=== PATIENT | female | born 1975 | race Caucasian/White ===

== ENCOUNTER 2017-02-25 06:45 | Inpatient (IN) | payer OTHER ==
[~2017-02-25] VITALS: Ht 170.2 cm; Wt 80.3 kg
--- NOTE | 2017-02-25 07:11 | NUR ---
DR. KINNEY AT BEDSIDE FOR MSE, PT BIB SIGNIFICANT OTHER FOR C/O LEFT SIDE CHEST PAIN THAT RADIATES TO LEFT ARM AND LEFT SIDE OF BACK, DENIES RECENT TRAUMA FALL OR INJURY, PT REPORTS PAIN STARTED APPROX 2300 LAST NIGHT AND HAS BEEN CONSTANT AND REPORTS COULDN'T SLEEP LAST NIGHT, REPORTS "SHARP, POKING" PAIN, REPORTS ALLERGIC TO ASA, PT LS CTA BILATERALLY, RESP EVEN AND UNLABORED, NO SOB NOTED, REPORTS PAIN INCREASED WHEN TAKING A DEEP BREATH, PT REPORTS HX OF HBP BUT DENIES TAKING HER MEDS DUE TO "MAKES ME REALLY SLEEPY" PT DENIES COUGH, REPORTS NAUSEA WITH NO EPISODES OF VOMITING, PT AAOX4, IN NO ACUTE DISTRESS, WILL CONTINUE TO MONITOR
[2017-02-25 07:38] LABS: microscopic required? NO
[2017-02-25 07:48] LABS: BASOPHIL % 0.5 % (0-2); PLATELET COUNT 210 x10^3mcL (130-400); RED CELL DISTRIBUTION WIDTH 12.9 % (11.5-14.5)
--- NOTE | 2017-02-25 07:51 | NUR ---
MEDICATIONS ADMINISTERED PER MD ORDER, PLEASE SEE EMAR, PT TOLERATED WELL, SIGNFICANT OTHER AT BEDSIDE, PT IN NO ACUTE DISTRESS, WILL CONTINUE TO MONITOR
[2017-02-25 07:52] LABS: UA SPECIFIC GRAVITY >=1.030 (1.005-1.035); urine erythrocyte NEGATIVE (NEGATIVE)
[2017-02-25 08:01] LABS: AMPHETAMINE QUAL UR NONE DETECTED (NEG <=1000)
[2017-02-25 08:02] LABS: CALCIUM 8.3 mg/dL (8.5-10.1); CARBON DIOXIDE 30.7 mmol/L (21-32); CHLORIDE SERUM 107 mmol/L (98-107); CREATININE SERUM 0.8 mg/dL (0.6-1.0); GFR1 > 60 mL/min; GLUCOSE SERUM 94 mg/dL (74-106); SODIUM SERUM 143 mmol/L (136-145)
[2017-02-25 08:07] LABS: ALBUMIN 3.6 g/dL (3.4-5.0); ALKALINE PHOSPHATASE 54 U/L (46-116); ALT/SGPT 16 U/L (14-59); AMYLASE 61 U/L (25-115); AST/SGOT 13 U/L (15-37); BILIRUBIN TOTAL 0.42 mg/dL (0.20-1.00); CHOLESTEROL 190 mg/dL (<200); LIPASE 105 IU/L (73-393); TOTAL PROTEIN, SERUM 7.2 g/dL (6.4-8.2)
--- NOTE | 2017-02-25 08:11 | NUR ---
PT REPORTS CHEST PAIN TO LEFT SIDE AND LT ARM IS BETTER AND ARM IS RELAXED BUT CHEST PAIN IS NOW TO CENTER OF CHEST, STS STILL 10/24, PT RESTING IN BED IN A POSITION OF COMFORT, ON FULL MONITORS, CALL LIGHT WITHIN REACH, WILL CONTINUE TO MONITOR
[2017-02-25 08:13] LABS: HDL CHOLESTEROL 72 mg/dL (40-60)
--- NOTE | 2017-02-25 08:44 | NUR ---
PT REPORTS PAIN 3/10 AT THIS TIME, MEDICATION ADMINISTERED PER MD ORDER, PLEASE SEE EMAR, PT TOLEARTED WELL, PT ON FULL MONITORS, VSS, IN NO ACUTE DISTRESS, SIDE RAILS UPX2, CALL LIGHT WITHIN REACH, SIGNIFICANT OTHER AT BEDSIDE, WILL CONTINUE TO MONITOR
--- NOTE | 2017-02-25 09:21 | NUR ---
PT RESTING IN BED IN A POSITION OF COMFORT WITH EYES CLOSED, VISIBLE RISE AND FALL OF CHEST NOTED, RESP EVEN AND UNLABORED, IN NO ACUTE DISTRESS, ON FULL MONITORS, SIDE RAILS UPX2, SIGNFICANT OTHER AT BEDSIDE, CALL LIGHT WITHIN REACH, WILL CONTINUE TO MONITOR
--- NOTE | 2017-02-25 10:19 | NUR ---
[facility] SWAB COLLECTED AND SENT TO LAB
--- NOTE | 2017-02-25 10:33 | NUR ---
REPORT GIVEN TO NATALI ALONZO TELE FLOOR TO ASSUME CARE OF PT AFTER TRANSPORT
--- NOTE | 2017-02-25 11:05 | NUR ---
RECEIVED THE PATIENT FROM ER DEPT VIA [facility]; THE PATIENT AWAKE AND ORIENTED TO PERSON, PLACE AND TIME. THE PATIENT AMBULATED TO THE BED WITH STEADY GAIT. H/L TO LAC. REORIENTED PATIENT TO ROOM AND EQUIPMENT. THE PATIENT SPEAKS [place], BUT HER BOYFRIEND AT BEDSIDE-DESTIN DARBY WAS ABLE TO SPEAK T[place] AND TRANSLATE FOR THE PATIENT WHILE PATIENT TALKED TO DR. AVILA-RESIDENT. TELE # [id number] ATTACHED TO THE PATIENT'S CHEST. ADMISSION PROCESS WAS IMPLEMENTED. CALL LIGHT WITHIN REACH. SIDE RAILS UP X2.
[2017-02-25 11:09] VITALS: BP 109/74
[2017-02-25 12:32] LABS: T3 TOTAL 1.25 ng/mL
[2017-02-25 13:14] LABS: MAGNESIUM 2.1 mg/dL (1.8-2.4); PHOSPHOROUS 3.7 mg/dL (2.5-4.9)
[2017-02-25 13:21] LABS: CHOLESTEROL/HDL RATIO 2.7
[2017-02-25 13:40] LABS: FREE T4 0.97 ng/dL (0.76-1.46); FREE THYROXINE INDEX 2.9 ug/dL (1.4-4.5); T4(THYROXINE) 8.2 ug/dL (4.7-13.3)
[2017-02-25 14:09] VITALS: BP 110/76
[2017-02-25 17:04] VITALS: BP 105/69
--- NOTE | 2017-02-25 18:41 | NUR ---
THE PATIENT WAS RESTING IN BED WITHOUT DISTRESS AFTER HAVING DINNER. PATIENT GOT OUT OF BED AND USED BRP SINCE COMMING TO THE ROOM.
[2017-02-25 20:27] VITALS: BP 106/63
--- NOTE | 2017-02-26 02:02 | NUR ---
SLEEPING THIS TIME BREATHING EASY AND NONLABOR. WILL CONTINUE TO MONITOR.
--- NOTE | 2017-02-26 05:10 | NUR ---
SLEPT AT LONG INTERVALS DENIES CHEST DISCOMFORT THE ENTIRE SHIFT. ALL NEEDS ATTENDED.
[2017-02-26 05:12] VITALS: BP 100/64
[2017-02-26 06:14] LABS: BASOPHIL % 0.8 % (0-2); PLATELET COUNT 213 x10^3mcL (130-400); RED CELL DISTRIBUTION WIDTH 12.8 % (11.5-14.5)
[2017-02-26 06:26] LABS: CALCIUM 8.5 mg/dL (8.5-10.1); CARBON DIOXIDE 25.8 mmol/L (21-32); CHLORIDE SERUM 106 mmol/L (98-107); CREATININE SERUM 0.7 mg/dL (0.6-1.0); GFR1 > 60 mL/min; GLUCOSE SERUM 88 mg/dL (74-106); MAGNESIUM 1.9 mg/dL (1.8-2.4); PHOSPHOROUS 4.3 mg/dL (2.5-4.9); POTASSIUM SERUM 3.6 mmol/L (3.5-5.1); SODIUM SERUM 141 mmol/L (136-145)
--- NOTE | 2017-02-26 07:30 | NUR ---
RESUME CARE: PATIENT AWAKE AND ORIENTED TO PERSON, PLACE AND TIME. DENIED ANY PAIN AT THIS TIME. TELE # [id number] READING SINUS RHYTHMS AT THIS TIME. SL TO LAC. CALL LIGHT WITHIN REACH. SIDE RAILS UP X2. CONTINUE TO MONITOR.
[2017-02-26 09:38] VITALS: BP 106/67
--- NOTE | 2017-02-26 09:50 | NUR ---
DR. SALAMANCA AND THE TEAM WERE MAKING ROUND TO SEE THE PATIENT. THE CARE PLAN WAS DISCUSSED WITH THE PATIENT IN [place] VIA FINANCIAL RECORDING CLERK, DR. LU-RESIDENT. THE PATIENT VERBALIZED UNDERSTANDING.
--- NOTE | 2017-02-26 13:35 | NUR ---
DR. HURTADO IN TO SEE THE PATIENT.
[2017-02-26 14:20] VITALS: BP 100/63
[2017-02-26] MEDS ORDERED: PRI20 PO (14:47)
[2017-02-26 15:27] VITALS: BP 100/63
--- NOTE | 2017-02-26 16:02 | NUR ---
DISCHARGE INSTRUCTION WAS IMPLEMENTED TO THE PATIENT. ALL QUESTIONS WERE EXPLAINED AND THE PATIENT VERBALIZED UNDERSTANDING. HL WAS REMOVED WITH CATH INTACT. TELE AND ID BAND WERE REMOVED.
--- NOTE | 2017-02-26 16:06 | NUR ---
THE PATIENT WAS ESCORTED TO THE DISCHARGE OFFICE IN STABLE CONDITION. ALL BELONGINGS WERE SENT HOME WITH THE PATIENT UPON DISCHARGE.
== END 2017-02-26 16:07 | disposition home or self-care (01) | DRG 243 ==
LOC: ED 06:45 → DU 10:17
PROVIDERS: Emergency Medicine; ADMIT Family Medicine
DX: K21.9 Gastro-esophageal reflux disease without esophagitis (principal); E83.51 Hypocalcemia; I10 Essential (primary) hypertension; F41.9 Anxiety disorder, unspecified; Z68.27 Body mass index [BMI] 27.0-27.9, adult; Z88.6 Allergy status to analgesic agent; Z82.49 Family history of ischemic heart disease and other diseases of the circulatory system
CPT/HCPCS: 83880; 84439; Q0092

== ENCOUNTER 2017-12-04 12:12 | Emergency (ER) | payer OTHER ==
[~2017-12-04] VITALS: Ht 172.7 cm; Wt 68.0 kg
[~2017-12-04 12:12] MED LIST: PRI20 PO
[2017-12-04 12:18] VITALS: BP 144/98; Ht 172.7 cm; Wt 68.0 kg
[2017-12-04 12:48] LABS: microscopic required? NO
[2017-12-04 12:49] LABS: BASOPHIL % 0.2 % (0-2); RED CELL DISTRIBUTION WIDTH 12.3 % (11.5-14.5)
[2017-12-04 12:59] LABS: UA SPECIFIC GRAVITY 1.015 (1.005-1.035); urine erythrocyte NEGATIVE (NEGATIVE)
[2017-12-04 13:02] LABS: CALCIUM 8.3 mg/dL (8.5-10.1); CARBON DIOXIDE 25.4 mmol/L (21-32); CHLORIDE SERUM 106 mmol/L (98-107); CREATININE SERUM 0.7 mg/dL (0.6-1.0); GFR1 > 60 mL/min; GLUCOSE SERUM 88 mg/dL (74-106); SODIUM SERUM 140 mmol/L (136-145)
[2017-12-04 13:05] LABS: PLATELET COUNT 23 x10^3mcL (130-400)
[2017-12-04 13:07] LABS: ALBUMIN 3.7 g/dL (3.4-5.0); ALKALINE PHOSPHATASE 70 U/L (46-116); ALT/SGPT 22 U/L (14-59); AMYLASE 96 U/L (25-115); AST/SGOT 39 U/L (15-37); BILIRUBIN TOTAL 0.7 mg/dL (0.20-1.00); CHOLESTEROL 190 mg/dL (<200); HDL CHOLESTEROL 66 mg/dL (40-60); LIPASE 247 IU/L (73-393); TOTAL PROTEIN, SERUM 7.9 g/dL (6.4-8.2)
[2017-12-04 13:17] LABS: AMPHETAMINE QUAL UR NONE DETECTED (See below)
== END 2017-12-04 14:46 | disposition home or self-care (01) ==
LOC: ED 12:12
PROVIDERS: Emergency Medicine
DX: K80.70 Calculus of gallbladder and bile duct without cholecystitis without obstruction (principal); I10 Essential (primary) hypertension; Z88.6 Allergy status to analgesic agent
CPT/HCPCS: 83880; J2060; J3490; Q0092

== ENCOUNTER 2018-01-14 23:54 | Emergency (ER) | payer OTHER ==
[~2018-01-14] VITALS: Ht 165.1 cm; Wt 86.2 kg
[2018-01-15 00:59] LABS: CALCIUM 8.1 mg/dL (8.5-10.1); CHLORIDE SERUM 106 mmol/L (98-107); CREATININE SERUM 0.8 mg/dL (0.6-1.0); GFR1 > 60 mL/min; GLUCOSE SERUM 99 mg/dL (74-106); POTASSIUM SERUM 3.5 mmol/L (3.5-5.1); SODIUM SERUM 143 mmol/L (136-145)
[2018-01-15 01:04] LABS: ALBUMIN 3.4 g/dL (3.4-5.0); ALKALINE PHOSPHATASE 65 U/L (46-116); ALT/SGPT 24 U/L (14-59); AST/SGOT 18 U/L (15-37); BILIRUBIN TOTAL 0.35 mg/dL (0.20-1.00); LIPASE 151 IU/L (73-393)
[2018-01-15 01:06] LABS: BASOPHIL % 0.5 % (0-2); PLATELET COUNT 225 x10^3mcL (130-400); RED CELL DISTRIBUTION WIDTH 12.9 % (11.5-14.5)
[2018-01-15 02:01] VITALS: BP 115/70
== END 2018-01-15 02:01 | disposition home or self-care (01) ==
LOC: ED 23:54
PROVIDERS: Emergency Medicine
DX: K80.20 Calculus of gallbladder without cholecystitis without obstruction (principal); R51 Headache; I10 Essential (primary) hypertension; Z88.6 Allergy status to analgesic agent
CPT/HCPCS: J2270; Q0162

== ENCOUNTER 2018-02-04 14:36 | Emergency (ER) | payer OTHER ==
[~2018-02-04] VITALS: Ht 167.6 cm; Wt 85.7 kg
[2018-02-04 14:46] VITALS: Ht 167.6 cm; Wt 85.7 kg
[2018-02-04 16:08] LABS: BASOPHIL % 0.4 % (0-2); PLATELET COUNT 232 x10^3mcL (130-400); RED CELL DISTRIBUTION WIDTH 12.6 % (11.5-14.5)
[2018-02-04 16:16] LABS: CARBON DIOXIDE 30.4 mmol/L (21-32); CHLORIDE SERUM 105 mmol/L (98-107); CREATININE SERUM 0.8 mg/dL (0.6-1.0); GFR1 > 60 mL/min; GLUCOSE SERUM 91 mg/dL (74-106); POTASSIUM SERUM 3.3 mmol/L (3.5-5.1); SODIUM SERUM 140 mmol/L (136-145)
[2018-02-04 16:23] LABS: ALBUMIN 3.7 g/dL (3.4-5.0); ALKALINE PHOSPHATASE 62 U/L (46-116); ALT/SGPT 19 U/L (14-59); AST/SGOT 12 U/L (15-37); BILIRUBIN TOTAL 0.36 mg/dL (0.20-1.00); LIPASE 118 IU/L (73-393); TOTAL PROTEIN, SERUM 7.4 g/dL (6.4-8.2)
[2018-02-04 16:57] VITALS: BP 130/82
== END 2018-02-04 17:17 | disposition home or self-care (01) ==
LOC: ED 14:36
PROVIDERS: Emergency Medicine
DX: K80.70 Calculus of gallbladder and bile duct without cholecystitis without obstruction (principal); I10 Essential (primary) hypertension; Z88.6 Allergy status to analgesic agent; Z87.19 Personal history of other diseases of the digestive system
CPT/HCPCS: J2550; J3010

== ENCOUNTER 2018-03-11 22:20 | Emergency (ER) | payer OTHER ==
[2018-03-11 22:27] VITALS: Ht 165.1 cm
[2018-03-12 00:35] LABS: BASOPHIL % 0.3 % (0-2); PLATELET COUNT 247 x10^3mcL (130-400); RED CELL DISTRIBUTION WIDTH 12.4 % (11.5-14.5)
[2018-03-12 00:47] LABS: CALCIUM 8.6 mg/dL (8.5-10.1); CARBON DIOXIDE 24.6 mmol/L (21-32); CHLORIDE SERUM 106 mmol/L (98-107); CREATININE SERUM 0.9 mg/dL (0.6-1.0); GFR1 > 60 mL/min; GLUCOSE SERUM 108 mg/dL (74-106); POTASSIUM SERUM 3.8 mmol/L (3.5-5.1); SODIUM SERUM 142 mmol/L (136-145)
[2018-03-12 00:52] LABS: ALBUMIN 3.4 g/dL (3.4-5.0); ALKALINE PHOSPHATASE 89 U/L (46-116); ALT/SGPT 70 U/L (14-59); AMYLASE 53 U/L (25-115); AST/SGOT 22 U/L (15-37); BILIRUBIN TOTAL 0.36 mg/dL (0.20-1.00); CHOLESTEROL 183 mg/dL (<200); HDL CHOLESTEROL 58 mg/dL (40-60); LIPASE 100 IU/L (73-393); TOTAL PROTEIN, SERUM 7.8 g/dL (6.4-8.2)
[2018-03-12 02:15] VITALS: BP 131/72
== END 2018-03-12 02:15 | disposition home or self-care (01) ==
LOC: ED 22:20
PROVIDERS: Emergency Medicine
DX: J98.11 Atelectasis (principal); I10 Essential (primary) hypertension; F41.9 Anxiety disorder, unspecified; Z88.6 Allergy status to analgesic agent; Z98.890 Other specified postprocedural states
CPT/HCPCS: 36415; 36600; 85378; 94150; Q0092; Q9967

== ENCOUNTER 2019-10-04 17:17 | Emergency (ER) | payer OTHER ==
[~2019-10-04] VITALS: Ht 167.6 cm; Wt 91.6 kg
[2019-10-04 17:28] VITALS: Ht 167.6 cm; Wt 91.6 kg
[2019-10-04 18:46] LABS: microscopic required? YES; urine erythrocyte TRACE (NEGATIVE)
[2019-10-04 19:03] LABS: BASOPHIL % 0.2 % (0-2); PLATELET COUNT 213 x10^3mcL (130-400); RED CELL DISTRIBUTION WIDTH 12.6 % (11.5-14.5)
[2019-10-04 19:21] LABS: CALCIUM 8.7 mg/dL (8.5-10.1); CARBON DIOXIDE 29.1 mmol/L (21-32); CHLORIDE SERUM 100 mmol/L (98-107); CREATININE SERUM 0.7 mg/dL (0.6-1.0); GFR1 > 60 mL/min; GLUCOSE SERUM 85 mg/dL (74-106); POTASSIUM SERUM 3.8 mmol/L (3.5-5.1); SODIUM SERUM 137 mmol/L (136-145)
[2019-10-04 19:32] LABS: ALBUMIN 3.6 g/dL (3.4-5.0); ALKALINE PHOSPHATASE 80 U/L (46-116); ALT/SGPT 29 U/L (14-59); AST/SGOT 15 U/L (15-37); BILIRUBIN TOTAL 0.5 mg/dL (0.20-1.00); TOTAL PROTEIN, SERUM 7.3 g/dL (6.4-8.2)
[2019-10-04 22:51] VITALS: BP 107/66
== END 2019-10-04 22:51 | disposition home or self-care (01) ==
LOC: ED 17:17
PROVIDERS: Emergency Medicine
DX: N39.0 Urinary tract infection, site not specified (principal); I10 Essential (primary) hypertension; Z90.49 Acquired absence of other specified parts of digestive tract; Z88.6 Allergy status to analgesic agent
CPT/HCPCS: J0696; J2270; J2405; J7030; J7060; Q9967

== ENCOUNTER 2020-06-08 16:42 | Emergency (ER) | payer OTHER, SELFPAY ==
[~2020-06-08] VITALS: Ht 172.7 cm; Wt 90.7 kg
[2020-06-08 16:47] VITALS: Ht 172.7 cm; Wt 90.7 kg
[2020-06-08 18:31] VITALS: BP 127/80
== END 2020-06-08 18:31 | disposition home or self-care (01) ==
LOC: ED 16:42
DX: U07.1 COVID-19 (principal); I10 Essential (primary) hypertension; Z88.6 Allergy status to analgesic agent
CPT/HCPCS: U0003